=== PATIENT | female | born 1945 ===

== ENCOUNTER → 2017-07-24 | Outpatient (CLI) | payer OTHER ==
--- NOTE | 2017-07-24 13:04 | CPEEG ---
[f rep st] ELECTROENCEPHALOGRAM DATE OF STUDY: 07/24/2017 INTERPRETATION: This EEG contains potentially epileptogenic abnormalities over the left temporal head region. These findings would be consistent with a focal seizure disorder. The findings of the study were directly communicated with the ordering provider, Dr. Kylah Handy. REPORT: This EEG contains 9 Hz alpha to the posterior head regions. There was a mild degree of focal slowing over the left temporal head region composed of intermittent polymorphic theta frequency activity. The primary feature of this study was the presence of left temporal intermittent rhythmic delta activity ( TIRDA) and occasional left temporal sharp waves. These were present at baseline and had increased activation with drowsiness and light sleep. There was no specific activation with photic stimulation or hyperventilation. No clinical events were recorded during the study. The findings of the study were directly communicated with the ordering provider, Dr. Kylah Handy. /[id number]/[id number] MTDD
== END ==
LOC: FCPNEURO 09:56
PROVIDERS: ATTEND Psychiatry & Neurology Neurology
DX: R94.01 Abnormal electroencephalogram [EEG] (principal); R41.3 Other amnesia